=== PATIENT | male | born 1945 | race Caucasian/White ===

== ENCOUNTER 2022-04-15 15:42 | Outpatient (CLI) | payer MEDICARE | END 2022-04-15 15:43 | disposition home or self-care (01) | LOC: CSHCP 15:42 | PROVIDERS: ATTEND Internal Medicine Critical Care Medicine | DX: R06.09 Other forms of dyspnea (principal) | CPT/HCPCS: 94010; 94726; 94729; 94760 ==

== ENCOUNTER 2024-12-07 12:19 | Outpatient (CLI) | payer MEDICARE | END 2024-12-07 12:20 | disposition home or self-care (01) | LOC: CSHCP 12:19 | PROVIDERS: ATTEND Internal Medicine Critical Care Medicine | DX: J84.9 Interstitial pulmonary disease, unspecified (principal) | CPT/HCPCS: 71250 ==

== ENCOUNTER 2024-12-21 13:29 | Outpatient (CLI) | payer MEDICARE | END 2024-12-21 13:30 | disposition home or self-care (01) | LOC: CSHCP 13:29 | PROVIDERS: ATTEND Internal Medicine Critical Care Medicine | DX: J98.4 Other disorders of lung (principal) | CPT/HCPCS: 94060; 94664; 94726; 94729; 94760 ==